=== PATIENT | male | born 1960 | race Caucasian/White ===

== ENCOUNTER → 2018-09-11 | Outpatient (CLI) | payer BC ==
[~2018-09-11] MED LIST: FLEXERIL 1010 MG/TAB PO; PRINIVIL10 MG PO; ZITHROMAX 250M250 MG PO
== END ==
LOC: COL.RAD 07:30
DX: C34.12 Malignant neoplasm of upper lobe, left bronchus or lung (principal); I31.3 Pericardial effusion (noninflammatory); R91.1 Solitary pulmonary nodule; Z98.890 Other specified postprocedural states
CPT/HCPCS: Q9967